=== PATIENT | male | born 1960 | race African-American/Black ===

== ENCOUNTER 2018-04-13 13:02 | Inpatient (IN) | payer MEDICAID ==
[~2018-04-13] VITALS: Ht 208.3 cm; Wt 61.4 kg
--- NOTE | ~2018-04-13 | CN ---
PATIENT NAME:EAGLE SALAS MEDICAL RECORD: [id number] : 64 LOCATION:D.MS [place] ADMIT DATE: 04/13/18 ACCOUNT: [id number] CONSULTING PHYSICIAN: SEN RODRIGEZ MD REFERRING PHYSICIAN: BALJIT ESQUEDA MD DATE OF CONSULTATION: 04/15/2018 Cardiology Consultation HISTORY OF PRESENT ILLNESS: A 57-year-old gentleman with no known history of coronary artery disease, has history of lung carcinoma and obstructive pulmonary disease, and admitted with chest pain, right-sided, fairly classic pleuritic. He reports some subjective fever and chills and constitutional symptomatology. We are asked to see him concerning his cardiovascular status. PAST MEDICAL HISTORY: Includes: 1. History of lung carcinoma. 2. Obstructive pulmonary disease. MEDICATIONS: Reports none regularly. ALLERGIES: PENICILLIN. SOCIAL HISTORY: Lives in [place], moved from [place]. Smokes less than a pack a day. Drinks at least 12 beers a day. REVIEW OF SYSTEMS: The patient reports easy bruising but reports no swollen glands. The patient reports no fever, no night sweats, no significant weight gain, no significant weight loss. No significant exercise tolerance. The patient reports no dry eyes, no irritation, no vision change. Patient reports no difficulty hearing and no ear pain. Patient reports no frequent nose bleeds or nose and sinus problems. Patient reports on arm pain on exertion. No shortness of breath while lying down. No history of heart murmur. Patient reports no cough, no wheezing or coughing up blood. Patient reports no abdominal pain, no vomiting. Normal appetite. No diarrhea and not vomiting blood. No nausea and no constipation. Patient reports no incontinence. No difficulty urinating. No hematuria. No increased frequency. Patient reports no muscle aches. No weakness, no arthralgias, no back pain. No swelling of the extremities. Patient reports no abnormal mole, no jaundice, no rashes. Reports no loss of consciousness. No weakness and no numbness. No seizures, dizziness, or headaches. The patient reports no depression, no sleep disturbance, feeling safe in a relationship and no alcohol abuse. Patient reports on fatigue. Reports no runny nose or sinus pressure. No itching, no hives, and no frequent sneezing. PHYSICAL EXAMINATION: GENERAL: Cachectic appearing gentleman in no acute distress, obvious splinting with deep inspiration. VITAL SIGNS: Blood pressure 142/96, pulse 107. HEENT: Normocephalic, atraumatic. NECK: No bruits noted. HEART: Regular. II/ systolic ejection murmur. LUNGS: Prolonged expiratory phase. Few scattered wheezes and inability to take deep breath. No rub particularly on the right. ABDOMEN: Soft, nontender. CONSULT REPORT [id number] BROWN,EAGLE EXTREMITIES: Pulses 2+ with no edema. DIAGNOSTIC DATA: ECG shows LVH. IMPRESSION: Pleuritic chest pain, enzymes negative, I doubt acute coronary syndrome. We will check echocardiogram study given his history of lung carcinoma. Further recommendations based on above. TRANSINT:[id number] Voice Confirmation ID: [id number] DOCUMENT ID: [id number] SEN RODRIGEZ MD at 0816 CC: [id number] DICTATION DATE: 04/15/18 0856 DATA WAREHOUSING MANAGER: 04/15/18 1259 DIS IN 04/17/18 [place] [id number] [place] [address]
[2018-04-13 13:50] LABS: BASOPHILS 0.1 % (0-2); EOSINOPHILS 0 % (0-7); HEMATOCRIT 45.5 % (42.0-54.0); HEMOGLOBIN 15.7 g/dL (13.5-17.5); IMMATURE GRANULOCYTES 0.3 % (0-5); LYMPHOCYTES 19.4 % (15-50); MCH 30.3 pg (26.0-34.0); MCHC 34.5 g/dL (31.0-37.0); MCV 87.8 fL (80.0-100.0); MEAN PLATELET VOLUME 11.1 fL (7.4-10.4); MONOCYTES 8.1 % (2-11); NEUTROPHILS 72.1 % (40-80); PLATELET COUNT 109 10x3/uL (130-400); RBC 5.18 10x6/uL (4.20-6.10); RDW 13.3 % (11.5-14.5); WBC 9.1 10x3/uL (4.8-10.8)
[2018-04-13 14:01] LABS: ALBUMIN 3.9 g/dL (3.4-5.0); ALKALINE PHOSPHATASE 69 U/L (46-116); ALT (SGPT) 15 U/L (10-68); BILIRUBIN - TOTAL 0.43 mg/dL (0.2-1.3); CALC OSMOLALITY 273 mosm/kg (275-300); CALCIUM 9.3 mg/dL (8.5-10.1); CARBON DIOXIDE 26.4 mmol/L (21.0-32.0); CHLORIDE - SERUM 103 mmol/L (98-107); GLUCOSE 95 mg/dL (74-106); POTASSIUM - SERUM 4.1 mmol/L (3.5-5.1); SODIUM 138 mmol/L (136-145); UREA NITROGEN 6 mg/dL (7-18); eGFR NON AFRICAN AMERICAN 82 mL/min (90-120)
[2018-04-13 14:12] LABS: CREATINE KINASE 78 UL (21-232); TROPONIN-I < 0.017 ng/mL (0.000-0.060)
[2018-04-13 17:52] VITALS: BP 155/86; Ht 208.3 cm; Wt 61.4 kg
[2018-04-13 17:56] VITALS: BP 155/86
[2018-04-13 20:01] LABS: CKMB 1.3 U/L (0.0-3.6)
[2018-04-13 20:02] LABS: CREATINE KINASE 408 UL (21-232); TROPONIN-I < 0.017 ng/mL (0.000-0.060)
[2018-04-13 22:54] VITALS: BP 156/95
[2018-04-13 23:51] LABS: APPEARANCE CLEAR (CLEAR); BILIRUBIN NEGATIVE (NEGATIVE); COLOR YELLOW (YELLOW); GLUCOSE NEGATIVE (NEGATIVE); KETONE NEGATIVE (NEGATIVE); NITRITE NEGATIVE (NEGATIVE); PROTEIN NEGATIVE (NEGATIVE); UROBILINOGEN NORMAL (NORMAL)
[2018-04-13 23:56] LABS: BACTERIA FEW /hpf (NONE SEEN); EPITHELIAL CELLS NSEEN /hpf (0-5); RED CELLS - URINE 0-5 /hpf (0-5); WHITE CELLS - URINE RARE /hpf (0-5)
[2018-04-14] VITALS (7 sets, daily range): BP systolic 141–155; BP diastolic 90–100
[2018-04-14 02:17] LABS: CKMB 0.7 U/L (0.0-3.6); CREATINE KINASE 387 UL (21-232); TROPONIN-I < 0.017 ng/mL (0.000-0.060)
[2018-04-14 12:58] LABS: CKMB 0.7 U/L (0.0-3.6); CREATINE KINASE 420 UL (21-232); TROPONIN-I < 0.017 ng/mL (0.000-0.060)
[2018-04-15 00:56] VITALS: BP 161/95
[2018-04-15 03:22] VITALS: BP 136/87
[2018-04-15 04:42] LABS: BASOPHILS 0.1 % (0-2); EOSINOPHILS 0.1 % (0-7); HEMATOCRIT 43.5 % (42.0-54.0); IMMATURE GRANULOCYTES 0.1 % (0-5); MCH 30.2 pg (26.0-34.0); MCHC 34.5 g/dL (31.0-37.0); MCV 87.7 fL (80.0-100.0); MEAN PLATELET VOLUME 11.5 fL (7.4-10.4); MONOCYTES 11.7 % (2-11); PLATELET COUNT 114 10x3/uL (130-400); RBC 4.96 10x6/uL (4.20-6.10); RDW 13.5 % (11.5-14.5); WBC 8.9 10x3/uL (4.8-10.8)
[2018-04-15 04:53] LABS: CALC OSMOLALITY 273 mosm/kg (275-300); CALCIUM 9.5 mg/dL (8.5-10.1); CARBON DIOXIDE 27.4 mmol/L (21.0-32.0); CHLORIDE - SERUM 101 mmol/L (98-107); GLUCOSE 112 mg/dL (74-106); POTASSIUM - SERUM 3.7 mmol/L (3.5-5.1); SODIUM 137 mmol/L (136-145); eGFR NON AFRICAN AMERICAN 82 mL/min (90-120)
[2018-04-15 05:20] LABS: UREA NITROGEN 9 mg/dL (7-18)
[2018-04-15 08:05] VITALS: BP 142/96
[2018-04-15 12:11] VITALS: BP 133/88
[2018-04-15 16:01] VITALS: BP 126/77
[2018-04-15 20:37] VITALS: BP 128/96
[2018-04-16 00:41] VITALS: BP 147/78
[2018-04-16 03:55] VITALS: BP 135/84
[2018-04-16 08:08] VITALS: BP 132/87
[2018-04-16 15:11] VITALS: BP 142/75
[2018-04-16 20:06] VITALS: BP 147/97
[2018-04-17 06:08] VITALS: BP 174/90
[2018-04-17 07:46] VITALS: BP 153/93
[2018-04-17] MEDS ORDERED: NICODERM C1 PATCH .1 TRANSDERM (08:22)
[2018-04-17] MEDS ORDERED: MEDROL DOSE PACK4 MG PO (08:28)
[2018-04-17] MEDS ORDERED: LOPRESSOR25 MG PO (08:29)
[2018-04-17] MEDS ORDERED: VITAMIN B-1100 M1 PO (08:30)
[2018-04-17] MEDS ORDERED: MULTIPLE VITAMI1 TA1 PO (08:31)
[2018-04-17] MEDS ORDERED: FOLIC ACID1 MG PO (08:31)
[2018-04-17] MEDS ORDERED: ATIVAN2 MG/ML PO (08:32)
[2018-04-17] MEDS ORDERED: MEDROL4 MG PO (08:47)
== END 2018-04-17 15:33 | disposition home or self-care (01) | DRG 190 ==
LOC: D.ER 13:02 → D.EDHOLD 14:55 → D.MS 14:55
PROVIDERS: Emergency Medicine; Family Medicine
DX: J44.0 Chronic obstructive pulmonary disease with (acute) lower respiratory infection (principal); J18.9 Pneumonia, unspecified organism; F17.213 Nicotine dependence, cigarettes, with withdrawal; F10.239 Alcohol dependence with withdrawal, unspecified; Z68.1 Body mass index [BMI] 19.9 or less, adult; I25.10 Atherosclerotic heart disease of native coronary artery without angina pectoris; I10 Essential (primary) hypertension; R09.1 Pleurisy; R00.0 Tachycardia, unspecified; N20.0 Calculus of kidney; R63.6 Underweight

== ENCOUNTER 2019-03-13 15:59 | Inpatient (IN) | payer MEDICAID ==
[~2019-03-13] VITALS: Ht 177.8 cm; Wt 62.3 kg
[~2019-03-13 15:59] MED LIST: ATIVAN2 MG/ML PO; FOLIC ACID1 MG PO; LOPRESSOR25 MG PO; MEDROL DOSE PACK4 MG PO; MEDROL4 MG PO; MULTIPLE VITAMI1 TA1 PO; NICODERM C1 PATCH .1 TRANSDERM; VITAMIN B-1100 M1 PO
[2019-03-13 16:47] LABS: BASOPHILS 0.1 % (0-2); EOSINOPHILS 0.1 % (0-7); HEMATOCRIT 42.8 % (42.0-54.0); HEMOGLOBIN 15.1 g/dL (13.5-17.5); IMMATURE GRANULOCYTES 0.3 % (0-5); LYMPHOCYTES 20.7 % (15-50); MCH 30.6 pg (26.0-34.0); MCHC 35.3 g/dL (31.0-37.0); MCV 86.6 fL (80.0-100.0); MEAN PLATELET VOLUME 10.7 fL (7.4-10.4); MONOCYTES 8.1 % (2-11); NEUTROPHILS 70.7 % (40-80); PLATELET COUNT 123 10x3/uL (130-400); RBC 4.94 10x6/uL (4.20-6.10); RDW 13.1 % (11.5-14.5); WBC 9.6 10x3/uL (4.8-10.8)
[2019-03-13 17:03] LABS: APTT 25.4 SECONDS (22.8-39.4); INR 1.01 (0.85-1.17); PROTIME 12.8 SECONDS (11.6-15.0)
[2019-03-13 17:09] LABS: ALBUMIN 4.1 g/dL (3.4-5.0); ALKALINE PHOSPHATASE 73 U/L (46-116); ALT (SGPT) 34 U/L (10-68); BILIRUBIN - TOTAL 0.53 mg/dL (0.2-1.3); CALC OSMOLALITY 276 mosm/kg (275-300); CALCIUM 9.4 mg/dL (8.5-10.1); CARBON DIOXIDE 26.3 mmol/L (21.0-32.0); CHLORIDE - SERUM 103 mmol/L (98-107); CREATININE - SERUM 0.9 mg/dL (0.6-1.3); GLUCOSE 97 mg/dL (74-106); PROTEIN - SERUM 8.4 g/dL (6.4-8.2); SODIUM 139 mmol/L (136-145); UREA NITROGEN 9 mg/dL (7-18); eGFR NON AFRICAN AMERICAN > 90 mL/min (90-120)
[2019-03-13 17:20] LABS: CKMB 0.3 U/L (0.0-3.6); CREATINE KINASE 73 UL (21-232); MAGNESIUM - SERUM 2.2 mg/dL (1.8-2.4); PRO BNP 20 pg/mL (0-125)
[2019-03-13 17:22] LABS: TROPONIN-I < 0.017 ng/mL (0.000-0.060)
[2019-03-13 17:30] VITALS: BP 152/93
[2019-03-13 20:00] VITALS: BP 146/92
--- NOTE | 2019-03-13 20:20 | NUR ---
PT C/O RIGHT CHEST AND BACK PAIN. STATES HURTS WHEN HE COUGHS TOO HARD. COUGH IS NON-PRODUCTIVE. GAVE MORPHINE FOR PAIN. ASSESSMENT COMPLETE. NO OTHER NEEDS. WILL CONTINUE TO MONITOR.
[2019-03-14 01:28] VITALS: BP 146/92; BMI 14.1
[2019-03-14 04:00] VITALS: BP 142/101
--- NOTE | 2019-03-14 07:10 | NUR ---
REPORT RECEIVED FROM RETAIL BANKING MANAGER AND PATIENT CARE ASSUMED. PATIENT LAYING IN BED WITH EYES CLOSED AND BREATHING EVENLY. VSS AND PATIENT IS STABLE. AT BS. WILL CONTINUE WITH PLAN OF CARE. SR UP X 2 BED IN LOW POSITION AND CALL LIGHT IN REACH.
--- NOTE | 2019-03-14 08:45 | NUR ---
PATIENT REQUESTING MORPHINE FOR PAIN. MEDICATED PER MAR. PATIENT IS STABLE AND VSS. AT BEDSIDE. WILL CONTINUE TO MONITOR.
[2019-03-14 09:18] VITALS: BP 136/86
[2019-03-14 09:42] VITALS: BMI 19.9
[2019-03-14 13:12] VITALS: BP 132/92
[2019-03-14 17:11] VITALS: BP 152/87
--- NOTE | 2019-03-14 17:37 | NUR ---
PATIENT SITTING UP IN BED WATCHING TV AND VISITING WITH . PATIENT IS STABLE AND VSS. PATIENT DENIES ANY NEEDS OR PAIN. WILL CONTINUE TO MONITOR.
--- NOTE | 2019-03-14 20:00 | NUR ---
ALERT AND ORIENTIATED RESTING IN BED, RESP UNLABOARED O2 IN USE, SEE SHIFT ASSESSMENT CALL LIGHT IN REACH, NO APPARENT DISTRESS, AT BEDSIDE, CALL LIGHT IN REACH
[2019-03-14 20:22] VITALS: BP 141/87
[2019-03-14 21:18] LABS: APPEARANCE CLEAR (CLEAR); BILIRUBIN NEGATIVE (NEGATIVE); COLOR DK YELLOW (YELLOW); GLUCOSE NEGATIVE (NEGATIVE); KETONE NEGATIVE (NEGATIVE); NITRITE NEGATIVE (NEGATIVE); PROTEIN TRACE mg/dL (NEGATIVE); SPECIFIC GRAVITY 1.025 (1.005-1.020); UROBILINOGEN NORMAL (NORMAL)
[2019-03-14 21:19] LABS: BACTERIA FEW /hpf (NONE SEEN); MUCUS <1+ /lpf (NONE SEEN); RED CELLS - URINE OCC /hpf (0-5); WHITE CELLS - URINE OCC /hpf (0-5)
[2019-03-15] VITALS (7 sets, daily range): BP systolic 127–164; BP diastolic 72–99
[2019-03-15 04:58] LABS: BASOPHILS 0 % (0-2); EOSINOPHILS 0 % (0-7); HEMATOCRIT 40.8 % (42.0-54.0); HEMOGLOBIN 14.7 g/dL (13.5-17.5); IMMATURE GRANULOCYTES 0.3 % (0-5); MCH 30.5 pg (26.0-34.0); MONOCYTES 6.2 % (2-11); NEUTROPHILS 87.5 % (40-80); RBC 4.82 10x6/uL (4.20-6.10); RDW 13.1 % (11.5-14.5)
[2019-03-15 05:04] LABS: MCV 84.6 fL (80.0-100.0); PLATELET COUNT 192 10x3/uL (130-400); WBC 18.1 10x3/uL (4.8-10.8)
[2019-03-15 06:28] LABS: CALC OSMOLALITY 267 mosm/kg (275-300); CALCIUM 9.8 mg/dL (8.5-10.1); CARBON DIOXIDE 24.2 mmol/L (21.0-32.0); CHLORIDE - SERUM 98 mmol/L (98-107); CREATININE - SERUM 0.9 mg/dL (0.6-1.3); GLUCOSE 146 mg/dL (74-106); SODIUM 133 mmol/L (136-145); UREA NITROGEN 11 mg/dL (7-18); eGFR NON AFRICAN AMERICAN > 90 mL/min (90-120)
--- NOTE | 2019-03-15 07:45 | NUR ---
A/A/OX4. STATES HE IS HAVING PAIN IN RIGHT RIBCAGE AT PRESENT TIME, BUT NOT YET TIME FOR PAIN MED. STATES HE WILL BE ABLE TO WAIT UNTIL TIME. NO OTHER REQUESTS. ASSESSMENT COMPLETED AND WILL CONTINUE POC. 02 OFF AT PRESENT TIME WITH RESP EVEN AND UNLABORED.
--- NOTE | 2019-03-15 13:25 | NUR ---
PATIENT IS NOT IN HIS ROOM FOR CT CIRCULATION MANAGER ROUNDING.
--- NOTE | 2019-03-15 14:45 | NUR ---
DR. REAL USABILITY ENGINEER NOTIFIED OF POSITIVE CTA FOR PE. NO NEW ORDERS RECEIVED AT THIS TIME.
--- NOTE | 2019-03-15 20:41 | NUR ---
EVENING ROUNDS COMPLETED. REPORT RECEIVED. PT SITTING UP IN BED WITH EYES CLOSED, RR EVEN AND UNLABORED. BED IN LOW POSITION. NO S/S OF DISTRESS NOTED. ORDERED URINE CULTURE COLLECTED AND SENT TO LAB. CALL LIGHT IN REACH. WILL CTM.
--- NOTE | 2019-03-16 03:10 | NUR ---
I have reviewed this patient and I concur with the Shift Assessment completed by the Licensed Practical Nurse today this shift.
[2019-03-16 03:36] VITALS: BP 139/91
[2019-03-16 03:52] LABS: BASOPHILS 0 % (0-2); EOSINOPHILS 0 % (0-7); HEMATOCRIT 40.3 % (42.0-54.0); HEMOGLOBIN 14.4 g/dL (13.5-17.5); IMMATURE GRANULOCYTES 0.4 % (0-5); LYMPHOCYTES 6.4 % (15-50); MCH 30.4 pg (26.0-34.0); MCHC 35.7 g/dL (31.0-37.0); MEAN PLATELET VOLUME 10.9 fL (7.4-10.4); NEUTROPHILS 88.2 % (40-80); RBC 4.74 10x6/uL (4.20-6.10); RDW 12.7 % (11.5-14.5); WBC 17.9 10x3/uL (4.8-10.8)
[2019-03-16 04:12] LABS: PLATELET COUNT 143 10x3/uL (130-400)
[2019-03-16 04:20] LABS: CALC OSMOLALITY 270 mosm/kg (275-300); CALCIUM 9.9 mg/dL (8.5-10.1); CARBON DIOXIDE 20.9 mmol/L (21.0-32.0); CHLORIDE - SERUM 100 mmol/L (98-107); CREATININE - SERUM 0.9 mg/dL (0.6-1.3); GLUCOSE 134 mg/dL (74-106); POTASSIUM - SERUM 3.8 mmol/L (3.5-5.1); SODIUM 134 mmol/L (136-145); UREA NITROGEN 15 mg/dL (7-18); eGFR NON AFRICAN AMERICAN > 90 mL/min (90-120)
[2019-03-16 07:59] VITALS: BP 140/84
--- NOTE | 2019-03-16 09:18 | NUR ---
WENT IN ROOM TO GIVE PT HIS MEDICATIONA AND WAS NOT IN HIS ROOM. WAS INFORMED BY THE FROZEN FOOD SELECTOR SHE SAW HIM LEAVE HIS ROOM GOING TOWARD ELEVATORS AT 0848. IS SPECIFICALLY TOLD PT YESTERDAY HE DID NOT NEED TO BE GOING DOWNSTAIRS AND OUT TO SMOKE BECAUSE OF THE PE. VERBALIZED UNDERSTANDING AT THAT TIME. AWAITING RETURN TO ROOM AT THIS TIME.
[2019-03-16 11:57] VITALS: BP 141/90
[2019-03-16 16:27] VITALS: BP 137/93
--- NOTE | 2019-03-16 18:19 | NUR ---
I have reviewed this patient and I concur with the Shift Assessment completed by the Licensed Practical Nurse today this shift.
--- NOTE | 2019-03-16 19:28 | NUR ---
EVENING ROUNDS COMPLETED. REPORT RECEIVED. PT SITTING UP IN BED WITH EYES OPEN, RR EVEN AND UNLABORED. BED IN LOW POSITION. NO S/S OF DISTRESS NOTED. INTRODUCED SELF TO PT. PT DENIES FURTHER NEEDS AT THIS TIME. CALL LIGHT IN REACH. WILL CTM.
[2019-03-16 19:45] VITALS: BP 132/78
[2019-03-16 23:44] VITALS: BP 144/88
--- NOTE | 2019-03-17 02:50 | NUR ---
I have reviewed this patient and I concur with the Shift Assessment completed by the Licensed Practical Nurse today this shift.
[2019-03-17 03:42] VITALS: BP 135/71
--- NOTE | 2019-03-17 05:30 | NUR ---
ORDERED CEFEPIME ANTIBIOTIC COULD NOT BE GIVEN ON TIME, NOT AVAILABLE IN REFRIGERATOR OR PYXIS. WILL NOTIFY ONCOMING SHIFT.
[2019-03-17 05:32] LABS: BASOPHILS 0 % (0-2); EOSINOPHILS 0 % (0-7); HEMATOCRIT 40.9 % (42.0-54.0); IMMATURE GRANULOCYTES 0.3 % (0-5); LYMPHOCYTES 10.3 % (15-50); MCH 30.9 pg (26.0-34.0); MCHC 36.7 g/dL (31.0-37.0); MCV 84.3 fL (80.0-100.0); MEAN PLATELET VOLUME 11.1 fL (7.4-10.4); MONOCYTES 7.9 % (2-11); NEUTROPHILS 81.5 % (40-80); PLATELET COUNT 163 10x3/uL (130-400); RBC 4.85 10x6/uL (4.20-6.10); RDW 12.6 % (11.5-14.5); WBC 14.3 10x3/uL (4.8-10.8)
[2019-03-17 05:52] LABS: CALC OSMOLALITY 272 mosm/kg (275-300); CALCIUM 9.9 mg/dL (8.5-10.1); CARBON DIOXIDE 25.1 mmol/L (21.0-32.0); CHLORIDE - SERUM 101 mmol/L (98-107); GLUCOSE 122 mg/dL (74-106); POTASSIUM - SERUM 4.2 mmol/L (3.5-5.1); SODIUM 135 mmol/L (136-145); UREA NITROGEN 18 mg/dL (7-18); eGFR NON AFRICAN AMERICAN 82 mL/min (90-120)
--- NOTE | 2019-03-17 07:38 | NUR ---
PATIENT ALERT/ORIENT. RESTING IN BED. FAMILY AT BEDSIDE. CALL LIGHT WITHIN REACH. VOICES NO NEEDS. WILL CONTINUE WITH PLAN OF CARE
[2019-03-17 07:59] VITALS: BP 139/52
[2019-03-17 09:46] VITALS: Ht 177.8 cm; Wt 62.3 kg
[2019-03-17 12:04] VITALS: BP 128/54
--- NOTE | 2019-03-17 13:48 | NUR ---
Nutrition follow-up: Diet: Low sodium PO intake 100% of meals Labs reviewed Wt: 136# +BM RDN following.
--- NOTE | 2019-03-17 14:24 | NUR ---
DR DUONG INTO SEE PATIENT. NEW ORDERS RECEIVED
[2019-03-17 15:38] LABS: INR 1.15 (0.85-1.17); PROTIME 14.2 SECONDS (11.6-15.0)
--- NOTE | 2019-03-17 19:15 | NUR ---
PATIENT WALKING AROUND IN ROOM. NO DISTRESS NOTED. NO COMPLAINTS AT THIS TIME.
[2019-03-17 20:00] VITALS: BP 148/93
--- NOTE | 2019-03-17 21:00 | NUR ---
PATIENT IV INFILTRATED. IV OUT WITH TIP INTACT. NEW 20G TO LEFT FOREARM X1 ATTEMPT.
[2019-03-18 00:02] VITALS: BP 153/106
--- NOTE | 2019-03-18 01:11 | NUR ---
PATIENT LAYING IN BED. NO COMPLAINTS AT THIS TIME. NO DISTRESS NOTED.
[2019-03-18 04:00] VITALS: BP 132/81
[2019-03-18 05:53] LABS: BASOPHILS 0 % (0-2); EOSINOPHILS 0 % (0-7); HEMATOCRIT 38.2 % (42.0-54.0); HEMOGLOBIN 13.3 g/dL (13.5-17.5); IMMATURE GRANULOCYTES 0.2 % (0-5); LYMPHOCYTES 19.9 % (15-50); MCH 29.6 pg (26.0-34.0); MCHC 34.8 g/dL (31.0-37.0); MCV 85.1 fL (80.0-100.0); MEAN PLATELET VOLUME 10.7 fL (7.4-10.4); MONOCYTES 8.2 % (2-11); NEUTROPHILS 71.7 % (40-80); PLATELET COUNT 153 10x3/uL (130-400); RBC 4.49 10x6/uL (4.20-6.10); RDW 12.7 % (11.5-14.5)
[2019-03-18 06:03] LABS: CALC OSMOLALITY 276 mosm/kg (275-300); CALCIUM 8.9 mg/dL (8.5-10.1); CARBON DIOXIDE 24.5 mmol/L (21.0-32.0); CHLORIDE - SERUM 103 mmol/L (98-107); CREATININE - SERUM 0.8 mg/dL (0.6-1.3); GLUCOSE 121 mg/dL (74-106); POTASSIUM - SERUM 4.3 mmol/L (3.5-5.1); SODIUM 137 mmol/L (136-145); UREA NITROGEN 17 mg/dL (7-18); eGFR NON AFRICAN AMERICAN > 90 mL/min (90-120)
[2019-03-18 06:05] LABS: INR 1.07 (0.85-1.17); PROTIME 13.4 SECONDS (11.6-15.0)
--- NOTE | 2019-03-18 07:50 | NUR ---
RECIEVED REPORT. PATIENT WAS UP OUT OF BED WALKING AROUND ROOM . FAMILY AT BEDSIDE.
--- NOTE | 2019-03-18 07:52 | NUR ---
PATIENT AND FAMILY ARE NOT IN THE ROOM AT THIS TIME. TEXTILE BAG SEWER NURSE DID REPORT THAT THIS PATIENT WILL OFTEN STEP OUT OF ROOM TO GO SMOKE. PATIENT DID NOT SAY THEY WERE STEPPING OUT. I CAME INTO THE ROOM TO PASS MORNING MEDICATIONS AND THE PATIENT IS NOT HERE.
[2019-03-18 09:18] VITALS: BP 149/81
--- NOTE | 2019-03-18 11:07 | NUR ---
PATIENT IS BACK IN HIS BED, RESTING ON HIS BACK. I GAVE HIM HIS SPUTUM CULTURE COLLECTION CUP AND HE VERBALIZED UNDERSTANDING OF USE.
--- NOTE | 2019-03-18 11:53 | MORECARE ---
CASE MANAGEMENT DISCHARGE SUMMARY PATIENT: EAGLE SALAS UNIT: [id number] ADM DATE: 03/13/19 AGE: 58 : 64 SEX: M ROOM/BED: D.2104 AUTHOR: JASE RUBIO PHYSICIAN: REFERRING PHYSICIAN: JOSEPH GRAVES MD DATE OF SERVICE: 03/18/19 Discharge Plan Patient Name: EAGLE SALAS [facility] [facility] 1960 Planned Disposition: Home Anticipated Discharge Date: 03/18/19 Discharge Date: Expected LOS: 5 Initial Reviewer: [email or web address] Initial Review Date: 03/13/2019 Generated: 03/18/19 12:53 pm DCPIA - Discharge Planning Initial Assessment Updated by [email or web address]: Chino Eisenberg on 03/18/19 11:51 am * Is the patient Alert and Oriented? Yes * How many steps to enter\exit or inside your home? NONE * PCP DR. BETH RAI IN [place] * Pharmacy [facility] ([place]) * Preadmission Environment Home with Family * ADLs Independent * Equipment None * Other Equipment NO MEDICAL EQUIPMENT PROVIDER PREFERENCE * List name and contact numbers for known caregivers / representatives who currently or will assist patient after discharge: MILO BANDABURN, SIGNIFICANT OTHER, * Verbal permission to speak to the caregivers and representatives has been obtained from the patient. N/A * Community resources currently utilized None * Please name any agencies selected above. NONE * Additional services required to return to the preadmission environment? No * Can the patient safely return to the preadmission environment? Yes * Has this patient been hospitalized within the prior 30 days at any hospital? No Patient Name: EAGLE SALAS Page [id number] at 1153 All edits/amendments must be made on the electronic document DICTATION DATE: 03/18/19 115 ELECTRICAL PROSPECTING OBSERVER: MARISELA 03/18/19 115 RPT#: [id number] DC DATE: STATUS: ADM IN [facility] [address] [place] [address] END OF REPORT
[2019-03-18] MEDS ORDERED: PROMETHAZINE W473 ML PO (11:56)
[2019-03-18] MEDS ORDERED: LOPRESSOR25 MG PO (11:56)
[2019-03-18] MEDS ORDERED: PREDNISONE20 MG PO (11:57)
[2019-03-18] MEDS ORDERED: ELIQUIS5 MG PO (11:58)
[2019-03-18] MEDS ORDERED: ALBUTEROL SULF8.5 GM INH (11:59)
[2019-03-18] MEDS ORDERED: DOXYCYCLINE HY100 M2 PO (12:00)
--- NOTE | 2019-03-18 12:02 | MORECARE ---
CASE MANAGEMENT DISCHARGE SUMMARY PATIENT: EAGLE SALAS UNIT: [id number] ADM DATE: 03/13/19 AGE: 58 : 64 SEX: M ROOM/BED: D.2104 AUTHOR: RAMIRO,DOC PHYSICIAN: REFERRING PHYSICIAN: JOSEPH GRAVES MD DATE OF SERVICE: 03/18/19 Discharge Plan Patient Name: EAGLE SALAS Facility: [facility]:[place] : 1960 Planned Disposition: Home Anticipated Discharge Date: 03/18/19 Discharge Date: Expected LOS: 5 Initial Reviewer: [email or web address] Initial Review Date: 03/13/2019 Generated: 03/18/19 1:02 pm Comments DCP- Discharge Planning Updated by [email or web address]: Chino Eisenberg on 03/18/19 10:[address] Patient Name: EAGLE SALAS Admission Status: ER Accout number: [id number] Admission Date: 03-13-2019 : 1960 Admission Diagnosis:SHORTNESS OF BREATH Attending: JOSEPH GRAVES Current LOS: 5 Anticipated DC Date: 03-18-2019 Planned Disposition: Home Primary Insurance: MEDICAID [place] Discharge Planning Comments: CM RECEIVED ORDER TO DETERMINE IF PT'S INSURANCE WILL COVER XERALTO OR ELIQUIS. RN CM HOUSE LOOKED UP MEDICAID FORMULARY, BOTH ARE COVERED MEDICATIONS. PT DOES HAVE OPEN "SLOT" FOR NEW MEDICATION. CM MET WITH PT IN ROOM TO DISCUSS DISCHARGE PLANNING AND NEEDS. PT REPORTS LIVING AT HOME INDEPENDENTLY WITH HIS SIGNIFICANT OTHER. PT HAS NO MEDICAL EQUIPMENT AND NO OUTSIDE SERVICES ASSISTING IN THE HOME. CM DISCUSSED AVAILABILITY OF HOME HEALTH, REHAB SERVICES AND MEDICAL EQUIPMENT. PT DENIES DISCHARGE NEEDS, REPORTS HIS FAMILY WILL PICK HIM UP FOR DISCHARGE HOME. BOTH XERALTO AND ELIQUIS ARE COVERED MEDICATIONS ON PT'S INSURANCE. PT PLANS TO DISCHARGE HOME WITH SIGNIFICANT OTHER, FAMILY TO TRANSPORT HOME. CM TO FOLLOW AND ASSIST IF NEEDED. Electric Appliance Installer: Chino Eisenberg DCPIA - Discharge Planning Initial Assessment Updated by [email or web address]: Chino Eisenberg on 03/18/19 11:51 am * Is the patient Alert and Oriented? Yes * How many steps to enter\\exit or inside your home? NONE * PCP DR. BETH RAI IN [place] * Pharmacy [facility] ([place]) * Preadmission Environment Home with Family * ADLs Independent * Equipment None * Other Equipment NO MEDICAL EQUIPMENT PROVIDER PREFERENCE * List name and contact numbers for known caregivers / representatives who currently or will assist patient after discharge: MILO SINGH, SIGNIFICANT OTHER, * Verbal permission to speak to the caregivers and representatives has been obtained from the patient. N/A * Community resources currently utilized None * Please name any agencies selected above. NONE * Additional services required to return to the preadmission environment? No * Can the patient safely return to the preadmission environment? Yes * Has this patient been hospitalized within the prior 30 days at any hospital? No Last DP export: 03/18/19 10:53 a Patient Name: EAGLE SALAS Page [phone] at 1202 All edits/amendments must be made on the electronic document DICTATION DATE: 03/18/191201 ELECTRICAL MAINTENANCE MAN: MARISELA 03/18/19 1202 RPT#: [id number] DC DATE: STATUS: ADM IN [facility] [address] [place] [address] END OF REPORT
[2019-03-18 12:12] LABS: ACLA - IGG AB <9 GPL U/mL (0-14); ACLA - IGM AB <9 MPL U/mL (0-12)
--- NOTE | 2019-03-18 15:37 | EC ---
PATIENT:EAGLE SALAS DATE OF SERVICE: 03/13/19 SEX: M MEDICAL RECORD: [id number] DATE OF : 64 LOCATION:D.M2 D.210 AGE OF PATIENT: 58 ADMISSION DATE: 03/13/19 REFERRING PHYSICIAN: INTERPRETING PHYSICIAN: SEN RODRIGEZ MD ECHOCARDIOGRAM REPORT ECHO CHARGES 4 ECHO COMPLETE Date: 03/17/19 CLINICAL DIAGNOSIS: SOB, PTE ECHOCARDIOGRAPHIC MEASUREMENTS (adult normal given) AC root (d.<3.7cm) 3.6 cm LV Septum d (<1.2 cm> 0.7 cm Valve Excursion 2.2 cm LV Septum (systole) 1.2 cm Left Atria (s.<4.0cm> 2.3 cm LVPW d(<1.2cm) 1.1 cm RV (d.<2.3cm) 2.4 cm LVPW (sytole) 1.3 cm LV diastole(<5.6CM) 4.1 cm MV E-F(>70mm/sec) cm LV systole 2.8 cm LVOT Diameter 2.2 cm MV exc.(>10mm) cm Est.ejection fraction (50-75%) % DOPPLER: LVIT cm/sec A 55 cm/sec E 72 cm/sec LA cm/sec RVSP 30.4 mmHg LVOT 81 cm/sec AOP1/2T m/s Asc. Ao 112 cm/sec RVOT 67 cm/sec RA cm/sec PA 101 cm/sec AV Gradient Peak 5.0 mmHg AV Mean 2.7 mmHg AV Area 2.5 cm MV Gradient Peak 4.2 mmHg MV Mean 1.3 mmHg MV Area cm COMMENTS: Terminal Worker: Divine CARRENOANMOL YNES Habilitation Specialist: 3 Dr. Mckenna TAPE# PACS Pericardial Effusion N DATE OF SERVICE: Adequate 2D, color flow, spectral Doppler, and M-Mode. No LVH. LV internal dimension is normal. Wall motion is normal. EF is greater than or equal to 55%. Aortic valve is tricuspid. No evidence of stenosis on Doppler interrogation. Left atrium is normal. Mitral valve shows no prolapse. Trace MR. Right-sided chambers are grossly normal. Trace TR. TRANSINT:[id number] Voice Confirmation ID: [id number] DOCUMENT ID: [id number] ECHOCARDIOGRAM REPORT [id number] EAGLE SALAS SEN RODRIGEZ MD at 1537 CC: [id number] DICTATION DATE: 03/18/19 1322 DIRECTOR BIOSTATISTICS: 03/18/19 1520 ADM IN [place] [id number] [place] [id number]
--- NOTE | 2019-03-18 16:42 | NUR ---
PATIENT HAS BEEN DISCHARGED. IV REMOVED FROM LEFT FOREARM. CATHETER INTACT. ALL PATIENT BELONGINGS HAVE BEEN REMOVED FROM THE ROOM PATIENT DENIES ANY OTHER NEEDS AT THIS TIME. PATIENT IS DISCHARGEING TO HOME WITH FAMILY.HE IS LEAVING THE FLOOR VIA WHEELCHAIR.
--- NOTE | 2019-03-18 16:43 | NUR ---
HEAD TO TOE ASSESSMENT HAS BEEN COMPLETED AND I AGREE WITH THE DISCHARGE ORDER THAT THERE HAVE BEEN NO NOTABLE CHANGES SINCE THE DISCHARGE ORDER. PATIENT IS SAFE TO DISCHARGE HOME AT THIS TIME.
[2019-03-19 04:08] LABS: PROTEIN S - FREE 95 % (57-157); PROTEIN S - FUNCTIONAL 63 % (63-140); PROTEIN S - TOTAL 120 % (60-150)
--- NOTE | 2019-03-19 07:35 | MORECARE ---
CASE MANAGEMENT DISCHARGE SUMMARY PATIENT: EAGLE SALAS UNIT: [id number] ADM DATE: 03/13/19 AGE: 58 : 64 SEX: M ROOM/BED: D.2104 AUTHOR: RAMIRO,DOC PHYSICIAN: REFERRING PHYSICIAN: JOSEPH GRAVES MD DATE OF SERVICE: 03/19/19 Discharge Plan Patient Name: EAGLE SALAS Facility: [facility]:[place] : 1960 Planned Disposition: Home Anticipated Discharge Date: 03/18/19 Discharge Date: 03/18/2019 Expected LOS: 5 Initial Reviewer: [email or web address] Initial Review Date: 03/13/2019 Generated: 03/19/19 8:35 am Comments DCP- Discharge Planning Updated by [email or web address]: Chino Eisenberg on 03/18/19 10:[address] Patient Name: EAGLE SALAS Admission Status: ER Accout number: [id number] Admission Date: 03-13-2019 : 1960 Admission Diagnosis:SHORTNESS OF BREATH Attending: JOSEPH GRAVES Current LOS: 5 Anticipated DC Date: 03-18-2019 Planned Disposition: Home Primary Insurance: MEDICAID [place] Discharge Planning Comments: CM RECEIVED ORDER TO DETERMINE IF PT'S INSURANCE WILL COVER XERALTO OR ELIQUIS. RN CM HOUSE LOOKED UP MEDICAID FORMULARY, BOTH ARE COVERED MEDICATIONS. PT DOES HAVE OPEN "SLOT" FOR NEW MEDICATION. CM MET WITH PT IN ROOM TO DISCUSS DISCHARGE PLANNING AND NEEDS. PT REPORTS LIVING AT HOME INDEPENDENTLY WITH HIS SIGNIFICANT OTHER. PT HAS NO MEDICAL EQUIPMENT AND NO OUTSIDE SERVICES ASSISTING IN THE HOME. CM DISCUSSED AVAILABILITY OF HOME HEALTH, REHAB SERVICES AND MEDICAL EQUIPMENT. PT DENIES DISCHARGE NEEDS, REPORTS HIS FAMILY WILL PICK HIM UP FOR DISCHARGE HOME. BOTH XERALTO AND ELIQUIS ARE COVERED MEDICATIONS ON PT'S INSURANCE. PT PLANS TO DISCHARGE HOME WITH SIGNIFICANT OTHER, FAMILY TO TRANSPORT HOME. CM TO FOLLOW AND ASSIST IF NEEDED. Spray Crew: Chino Eisenberg DCPIA - Discharge Planning Initial Assessment Updated by [email or web address]: Chino Eisenberg on 03/18/19 11:51 am * Is the patient Alert and Oriented? Yes * How many steps to enter\\exit or inside your home? NONE * PCP DR. BETH RAI IN [place] * Pharmacy [facility] ([place]) * Preadmission Environment Home with Family * ADLs Independent * Equipment None * Other Equipment NO MEDICAL EQUIPMENT PROVIDER PREFERENCE * List name and contact numbers for known caregivers / representatives who currently or will assist patient after discharge: MILO SINGH, SIGNIFICANT OTHER, * Verbal permission to speak to the caregivers and representatives has been obtained from the patient. N/A * Community resources currently utilized None * Please name any agencies selected above. NONE * Additional services required to return to the preadmission environment? No * Can the patient safely return to the preadmission environment? Yes * Has this patient been hospitalized within the prior 30 days at any hospital? No Last DP export: 03/18/19 11:02 a Patient Name: EAGLE SALAS Page [phone] at 0735 All edits/amendments must be made on the electronic document DICTATION DATE: 03/19/19733 DIRECTOR INTEGRATED: MARISELA 03/19/1932 RPT#: [id number] DC DATE:03/18/19 STATUS: DIS IN [facility] [address] [place] [address] END OF REPORT
[2019-03-19 13:15] LABS: LUPUS - INTERPRETATION Comment: (()); LUPUS - THROMBIN TIME 14.7 sec (0.0-23.0); LUPUS - dRVVT 37.1 sec (0.0-47.0); PROTEIN S - FREE 75 % (57-157); PROTEIN S - TOTAL 126 % (60-150); PTT-LA 34.1 sec (0.0-51.9)
[2019-03-20 03:08] LABS: PROTEIN C - ANTIGEN 142 % (60-150); PROTEIN C - FUNCTIONAL 154 % (73-180)
[2019-03-20 20:06] LABS: FACTOR II DNA ANALYSIS Negative (())
== END 2019-03-18 16:45 | disposition home or self-care (01) | DRG 177 ==
LOC: D.ER 15:59 → D.M2 17:50
PROVIDERS: Emergency Medicine; Family Medicine; Internal Medicine Pulmonary Disease; ADMIT Internal Medicine Nephrology; ATTEND Internal Medicine Nephrology
DX: J15.6 Pneumonia due to other Gram-negative bacteria (principal); I26.99 Other pulmonary embolism without acute cor pulmonale; J44.1 Chronic obstructive pulmonary disease with (acute) exacerbation; J44.0 Chronic obstructive pulmonary disease with (acute) lower respiratory infection; F17.213 Nicotine dependence, cigarettes, with withdrawal; F17.210 Nicotine dependence, cigarettes, uncomplicated; J13 Pneumonia due to Streptococcus pneumoniae; I27.21 Secondary pulmonary arterial hypertension; I08.1 Rheumatic disorders of both mitral and tricuspid valves; K21.9 Gastro-esophageal reflux disease without esophagitis; Q05.9 Spina bifida, unspecified; D69.6 Thrombocytopenia, unspecified; I10 Essential (primary) hypertension